=== PATIENT | male | born 1970 | race Caucasian/White ===

== ENCOUNTER 2016-08-16 11:16 | Emergency (ER) | payer OTHER ==
[~2016-08-16] VITALS: Ht 180.3 cm; Wt 92.3 kg
[2016-08-16 11:17] VITALS: BP 160/89; PULSE 54; RESP 16; O2SAT 99
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
[2016-08-16] MEDS ORDERED: HYDROmorphone 1 mg/mL Inj ONE (11:31)
[2016-08-16] MEDS ORDERED: HYDROmorphone 1 mg/mL Inj IVPUSH PRN (11:40)
[2016-08-16] MEDS ORDERED: Ondansetron 2 mg/mL 2 mL Inj IVPUSH PRN (11:40)
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
[2016-08-16 12:20] LABS: BASOPHILS % (AUTO) 0.4 % (0-3); MONOCYTES % (AUTO) 9.1 % (4-12); Mean Corpuscular Hemoglobin 27.9 pg (27.0-35.0); Mean Corpuscular Volume 82.3 fL (81-100); NEUTROPHILS % (AUTO) 42.6 % (40-74); Platelet Count 310 bil/L (150-400)
[2016-08-16 12:25] VITALS: BP 145/89; PULSE 59; O2SAT 95
[2016-08-16 12:25] LABS: INR 0.94 ratio
[2016-08-16 12:48] VITALS: BP 136/79; PULSE 68; RESP 18; O2SAT 97
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
--- NOTE | 2016-08-16 12:54 | DRSVH ---
PROCEDURE: X-RAY LEFT SHOULDER, MINIMUM TWO VIEWS ([id number]) INDICATIONS: trauma TECHNIQUE: 2 views of the shoulder were acquired. COMPARISON: None. FINDINGS: Bones: No dislocations. No suspicious bony lesions. Visualized ribs appear intact. There is a kinjal pected fracture at the base of the glenoid. Soft tissues: No suspicious soft tissue calcifications. IMPRESSION: Suspected glenoid base fracture. Dictated by: Chato Kaiser M.D. on 08/16/2016 at 12:51 Approved by: Chato Kaiser M.D. on 08/16/2016 at 12:52
--- NOTE | 2016-08-16 12:55 | DRSVH ---
PROCEDURE: X-RAY LEFT HUMERUS, MINIMUM TWO VIEWS ([id number]) INDICATIONS: trauma TECHNIQUE: 3 views of the humerus were acquired. COMPARISON: [facility], CR, XR ELBOW 2VW LT, 08/16/2016, 11:36. [facility], CR, XR CHEST 1VW (PORTABLE), 08/16/2016, 11:36. [facility], CR, XR SHOULDER MIN 2VW LT, , 11:36. FINDINGS: Bones: No dislocations. No suspicious bony lesions. There is a suspected glenoid base fracture, no ndisplaced. This is better seen on left shoulder plain films. It may also be present but less well- visualized on chest plain film from today. Soft tissues: No suspicious soft tissue calcifications. IMPRESSION: Glenoid base fracture, CT is scheduled to further assess this area. Dictated by: Chato Kaiser M.D. on 08/16/2016 at 12:53 Approved by: Chato Kaiser M.D. on 08/16/2016 at 12:54
--- NOTE | 2016-08-16 13:42 | DRSVH ---
PROCEDURE: CT CHEST, ABDOMEN AND PELVIS WITH CONTRAST ([id number]) INDICATIONS: trauma TECHNIQUE: After the administration of intravenous contrast, 5 mm thick sections acquired from the lung apices t o the symphysis. 5 mm coronal and sagittal reformats were performed, with additional 7 mm MIP reform ats through the lungs. For radiation dose reduction, the following was used: automated exposure con trol, adjustment of mA and/or kV according to patient size. COMPARISON: [facility], CR, XR HUMERUS 2VW LT, 08/16/2016, 12:06. FINDINGS: Image quality: Excellent. CHEST: Lungs and pleura: No acute airspace opacities. No pleural effusions or pneumothorax. Central and p eripheral airways appear patent and normal in caliber. Mediastinum: Heart size is normal. No pericardial effusion. No mediastinal or hilar adenopathy by size criteria. Thoracic aorta and central pulmonary arteries are normal in size. Esophagus is geoffrey l in caliber. No hiatal hernia. Chest wall: No axillary or supraclavicular adenopathy by size criteria. Thyroid gland appears geoffrey l where well visualized. Note is made of a vertically oriented fracture within the body of the scapu la that extends to the scapular spine, and also across the lateral border of the scapula on the left near the base of the coronoid ABDOMEN: Solid organs: Liver and spleen are normal in size and enhancement. Gallbladder appears normal the. Biliary system is non dilated. Pancreas enhances normally. No adrenal nodules. Kidneys demonstrat e normal size and enhancement, without hydronephrosis. Peritoneum and bowel: Bowel loops demonstrate normal wall thickness and caliber. No free fluid or a ir. Nodes and vessels: No retroperitoneal or mesenteric adenopathy by size criteria. Aorta and inferior vena cava are normal in size. Miscellaneous: No ventral hernias. PELVIS: Genitourinary: Bladder wall thickness is normal. Miscellaneous: No inguinal hernias or adenopathy. Bones: No suspicious bony lesions. No vertebral body compression fractures. IMPRESSION: Fractured left scapula, in gross anatomic alignment, with a vertically oriented fracture plane extending through the body of the scapula and tracking to the base of the glenoid. Fracture e xtends cephalad above the imaging margin, into the scapular spine. Dictated by: Chato Kaiser M.D. on 08/16/2016 at 13:36 Approved by: Chato Kaiser M.D. on 08/16/2016 at 13:41
[2016-08-16] MEDS ORDERED: HYDR-4003 PO (14:23)
[2016-08-16] MEDS ORDERED: TdaP Vaccine 0.5 mL Inj IM ONE (14:25)
[2016-08-16 14:30] VITALS: BP 128/73; PULSE 58; RESP 12; O2SAT 96
== END 2016-08-16 15:00 | disposition home or self-care (01) ==
LOC: SED 11:16
DX: S06.0X1A Concussion with loss of consciousness of 30 minutes or less, initial encounter (principal); S42.142A Displaced fracture of glenoid cavity of scapula, left shoulder, initial encounter for closed fracture; S00.31XA Abrasion of nose, initial encounter; S50.312A Abrasion of left elbow, initial encounter; S80.212A Abrasion, left knee, initial encounter; V19.3XXA Pedal cyclist (driver) (passenger) injured in unspecified nontraffic accident, initial encounter; Y93.55 Activity, bike riding; Y92.009 Unspecified place in unspecified non-institutional (private) residence as the place of occurrence of the external cause; Y99.8 Other external cause status
CPT/HCPCS: 36415; 70450; 70486; 71010; 71260; 72125; 73030; 73060; 73070; 74177; 80053; 85014; 85018; 85025; 85610; 85730; 86850; 93005; 96374; 96376; 99285; G0480; J1170; Q9967